=== PATIENT | female | born 1990 | race Caucasian/White ===

== ENCOUNTER 2016-07-02 14:53 | Emergency (ER) | payer OTHER ==
[~2016-07-02] VITALS: Ht 160 cm; Wt 55.0 kg
[~2016-07-02 14:53] MED LIST: CLON.5 PO; OMEP20TA39 PO; ZOFR4TAB3 SL
[2016-07-02 15:14] VITALS: BP 133/74; PULSE 91; RESP 18; O2SAT 96
[2016-07-02] MEDS ORDERED: PREN29TA PO (15:20)
[2016-07-02 15:50] LABS: MEAN CORPUSCULAR HGB CONC 36.1 % (32.0-36.0)
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
[2016-07-02 16:07] LABS: BASOPHIL % 0.2 % (0.0-2.0); EOSINOPHIL # 0.1 TH/MM3 (0-0.4); EOSINOPHIL % 0.5 % (0.0-4.0); HEMATOCRIT 37.4 % (35.0-46.0); LYMPH % 16.6 % (9.0-44.0); LYMPHOCYTE # 1.7 TH/MM3 (1.0-4.8); MEAN CELL VOLUME 86.6 FL (80.0-100.0); MEAN CORPUSCULAR HEMOGLOBIN 31.3 PG (27.0-34.0); MONO % 5.9 % (0.0-8.0); NEUT % 76.8 % (16.0-70.0); PLATELET COUNT 217 TH/MM3 (150-450); RED BLOOD COUNT 4.32 MIL/MM3 (4.00-5.30); RED CELL DISTRIBUTION WIDTH 12.7 % (11.6-17.2); WHITE BLOOD COUNT 10.5 TH/MM3 (4.0-11.0)
[2016-07-02 16:08] LABS: BLOOD, URINE NEG (NEG); COMMENT (UR) CULT NOT INDICATED; CULTURE IF INDICATED CULT NOT INDICATED; GLUCOSE,URINE NEG (NEG); KETONE, URINE NEG (NEG); NITRITE,URINE NEG (NEG); PH, URINE 6.5 (5.0-8.5); SQUAMOUS EPITHELIAL CELL URINE <1 /hpf (0-5); URINE COLOR YELLOW (YELLW/STRAW)
[2016-07-02 16:10] LABS: HEMO FLAGS AUTO DIFF
[2016-07-02 16:17] LABS: POTASSIUM 3.6 MEQ/L (3.5-5.1)
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
[2016-07-02 16:51] LABS: PLATELET ESTIMATE SMEAR NORMAL (NORMAL); PLATELET MORPHOLOGY NORMAL (NORMAL); SCAN/DIFF AUTO DIFF CONFIRMED
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
== END 2016-07-02 18:21 | disposition home or self-care (01) ==
LOC: NEPE 14:53
DX: O26.891 Other specified pregnancy related conditions, first trimester (principal); Z3A.11 11 weeks gestation of pregnancy; R10.2 Pelvic and perineal pain; V43.52XA Car driver injured in collision with other type car in traffic accident, initial encounter; Y93.9 Activity, unspecified; Y92.9 Unspecified place or not applicable
CPT/HCPCS: 70450; 72125; 80048; 81001; 85025; 99284; L0150

== ENCOUNTER 2016-07-25 05:20 | Emergency (ER) | payer MEDICAID, OTHER ==
[~2016-07-25] VITALS: Ht 172.7 cm; Wt 65.0 kg
[~2016-07-25 05:20] MED LIST changes: -CLON.5 PO; -OMEP20TA39 PO; +PREN29TA PO; -ZOFR4TAB3 SL
[2016-07-25 05:22] VITALS: BP 114/70; PULSE 92; RESP 16; TEMP 97.9; O2SAT 99
[2016-07-25] MEDS ORDERED: SODIUM CHLOR 0.9% 1000 ML INJ 1,000 ML IV ONE (05:30)
[2016-07-25] MEDS ORDERED: ONDANSETRON HCL 4 MG/2 ML VIAL IVP ONE (05:30)
[2016-07-25] MEDS ORDERED: SODIUM CHLOR 0.9% 1000 ML INJ 1,000 ML IV SCH (05:30)
[2016-07-25] MEDS ORDERED: SODIUM CHLORIDE 0.9% FLUSH 10 ML FLUSH IV FLUSH PRN (05:30)
[2016-07-25 05:39] VITALS: O2SAT 100
--- NOTE | 2016-07-25 05:39 | PD ---
HPI Chief Complaint: GI Complaint Time Seen by Provider: 05:25 Travel History International Travel<30 days: No Contact w/Intl Traveler<30days: No Traveled to known affect area: No History of Present Illness HPI The patient is a 26-year-old female who presents to the emergency department for nausea and vomiting. The patient is currently 15 weeks , last menstrual cycle April 08, 2016. Patient is Ab1. The patient states she ate dinner last night, pork chops and broccoli, and 2 hours later developed nausea and vomiting. Patient does complain of generalized crampy abdominal pain associated with nausea and vomiting 3. The patient denies any diarrhea. The patient states that her significant other ate the same meal and he has no current symptoms. The patient does have a 4-year-old child at home that stays at home, no daycare, with no similar symptoms. The patient denies any dysuria, frequency, urgency, or vaginal bleeding. The abdominal pain is generalized, crampy, and assisted with the nausea and vomiting. 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 [facility] Past Medical History Asthma: No Autoimmune Disease: No Blood Disorders: No Anxiety: No Depression: No Heart Rhythm Problems: Yes (HEART MURMUR WHEN YOUNGER) Cardiovascular Problems: No Chest Pain: No Cystic Fibrosis: No Diminished Hearing: No Endocrine: No Gastrointestinal Disorders: Yes Genitourinary: No Headaches: No Hypertension: No Musculoskeletal: No Neurologic: No Psychiatric: No Respiratory: Yes Seizures: No Sickle Cell Disease: No Sleep Apnea: No ?: Menopausal: Yes : 3 Para: 1 : 1 Past Surgical History Abdominal Surgery: No Appendectomy: No Cardiac Surgery: No Cholecystectomy: No Ear Surgery: No Endocrine Surgery: No Eye Surgery: No Genitourinary Surgery: No Gynecologic Surgery: No Joint Replacement: No Neurologic Surgery: No Oral Surgery: No Thoracic Surgery: No Other Surgery: Yes (arm) Social History Alcohol Use: No Tobacco Use: No (quit ) Substance Use: Yes (OCCASIONAL) Allergies-Medications (Allergen,Severity, Reaction): Coded Allergies: No Known Allergies (Verified , 07/25/16) Reported Meds & Prescriptions Reported Meds & Active Scripts Active Zofran Odt (Ondansetron Odt) 4 Mg Tab 4 Mg SL Q6HR PRN Phenergan (Promethazine HCl) 25 Mg Tab 25 Mg PO Q6H PRN Reported Plus Iron 29-1 mg ( Vit-Iron Carbonyl) 1 Tab Tab 1 Tab PO DAILY Review of Systems Except as stated in HPI: all other systems reviewed are Neg General / Constitutional: No: Fever Cardiovascular: No: Chest Pain or Discomfort Respiratory: No: Shortness of Breath Gastrointestinal: Positive: Nausea, Vomiting, Abdominal Pain (crampy abdominal pain), No: Diarrhea, Constipation Genitourinary: No: Dysuria, Vaginal Bleeding Physical Exam Narrative GENERAL: Awake, alert, pleasant 26-year-old female who appears her stated age and is in no acute respiratory distress. SKIN: Focused skin assessment warm/dry. HEAD: Atraumatic. Normocephalic. EYES: Pupils equal and round. No scleral icterus. No injection or drainage. ENT: No nasal bleeding or discharge. Slightly dry mucous membranes. NECK: Trachea midline. No JVD. CARDIOVASCULAR: Regular rate and rhythm. No murmur appreciated. RESPIRATORY: No accessory muscle use. Clear to auscultation. Breath sounds equal bilaterally. GASTROINTESTINAL: Abdomen soft, gravid inferior to the umbilicus. No rebound tenderness, guarding, rigidity. MUSCULOSKELETAL: No obvious deformities. No clubbing. No cyanosis. No edema. NEUROLOGICAL: Awake and alert. No obvious cranial nerve deficits. Motor grossly within normal limits. Normal speech. PSYCHIATRIC: Appropriate mood and affect; insight and judgment normal. Data Data Last Documented VS Vital Signs Date Time Temp Pulse Resp B/P Pulse Ox O2 Delivery O2 Flow Rate FiO2 07/25/16 07:53 97.8 78 16 120/77 99 07/25/16 05:39 Room Air Orders Complete Blood Count With Diff (07/25/16 05:30) Comprehensive Metabolic Panel (07/25/16 05:30) Lipase (07/25/16 05:30) Urinalysis - C+S If Indicated (07/25/16 05:30) Iv Access Insert/Monitor (07/25/16 05:30) Ecg Monitoring (07/25/16 05:30) Oximetry (07/25/16 05:30) Ondansetron Inj (Zofran Inj) (07/25/16 05:30) Sodium Chlor 0.9% 1000 Ml Inj (Ns 1000 M (07/25/16 05:30) Sodium Chloride 0.9% Flush (Ns Flush) (07/25/16 05:30) Sodium Chlor 0.9% 1000 Ml Inj (Ns 1000 M (07/25/16 05:30) Metoclopramide Inj (Reglan Inj) (07/25/16 06:30) Labs Laboratory Tests Test 07/25/16 07/25/16 05:30 06:20 White Blood Count 12.8 TH/MM3 Red Blood Count 4.22 MIL/MM3 Hemoglobin 13.1 GM/DL Hematocrit 36.4 % Mean Corpuscular Volume 86.2 FL Mean Corpuscular Hemoglobin 31.0 PG Mean Corpuscular Hemoglobin 36.0 % Concent Red Cell Distribution Width 13.0 % Platelet Count 192 TH/MM3 Mean Platelet Volume 7.9 FL Neutrophils (%) (Auto) 91.0 % Lymphocytes (%) (Auto) 5.2 % Monocytes (%) (Auto) 3.4 % Eosinophils (%) (Auto) 0.3 % Basophils (%) (Auto) 0.1 % Neutrophils # (Auto) 11.6 TH/MM3 Lymphocytes # (Auto) 0.7 TH/MM3 Monocytes # (Auto) 0.4 TH/MM3 Eosinophils # (Auto) 0.0 TH/MM3 Basophils # (Auto) 0.0 TH/MM3 CBC Comment AUTO DIFF Differential Comment AUTO DIFF CONFIRMED Sodium Level 136 MEQ/L Potassium Level 3.5 MEQ/L Chloride Level 102 MEQ/L Carbon Dioxide Level 23.0 MEQ/L Anion Gap 11 MEQ/L Blood Urea Nitrogen 9 MG/DL Creatinine 0.45 MG/DL Estimat Glomerular Filtration 166 ML/MIN Rate Random Glucose 95 MG/DL Calcium Level 8.7 MG/DL Total Bilirubin 0.7 MG/DL Aspartate Amino Transf 12 U/L (AST/SGOT) Alanine Aminotransferase 19 U/L (ALT/SGPT) Alkaline Phosphatase 53 U/L Total Protein 6.4 GM/DL Albumin 3.3 GM/DL Lipase 92 U/L Urine Color STRAW Urine Turbidity CLEAR Urine pH 7.0 Urine Specific [place] 1.003 Urine Protein NEG mg/dL Urine Glucose (UA) NEG mg/dL Urine Ketones TRACE mg/dL Urine Occult Blood NEG Urine Nitrite NEG Urine Bilirubin NEG Urine Urobilinogen LESS THAN 2.0 MG/DL Urine Leukocyte Esterase NEG Urine Squamous Epithelial 2 /hpf Cells Urine Bacteria RARE /hpf Microscopic Urinalysis Comment CULT NOT INDICATED MDM Medical Decision Making Medical Screen Exam Complete: Yes Emergency Medical Condition: Yes Medical Record Reviewed: Yes Interpretation(s) Laboratory Tests Test 07/25/16 05:30 White Blood Count 12.8 TH/MM3 Red Blood Count 4.22 MIL/MM3 Hemoglobin 13.1 GM/DL Hematocrit 36.4 % Mean Corpuscular Volume 86.2 FL Mean Corpuscular Hemoglobin 31.0 PG Mean Corpuscular Hemoglobin 36.0 % Concent Red Cell Distribution Width 13.0 % Platelet Count 192 TH/MM3 Mean Platelet Volume 7.9 FL Neutrophils (%) (Auto) 91.0 % Lymphocytes (%) (Auto) 5.2 % Monocytes (%) (Auto) 3.4 % Eosinophils (%) (Auto) 0.3 % Basophils (%) (Auto) 0.1 % Neutrophils # (Auto) 11.6 TH/MM3 Lymphocytes # (Auto) 0.7 TH/MM3 Monocytes # (Auto) 0.4 TH/MM3 Eosinophils # (Auto) 0.0 TH/MM3 Basophils # (Auto) 0.0 TH/MM3 CBC Comment AUTO DIFF Sodium Level 136 MEQ/L Potassium Level 3.5 MEQ/L Chloride Level 102 MEQ/L Carbon Dioxide Level 23.0 MEQ/L Anion Gap 11 MEQ/L Blood Urea Nitrogen 9 MG/DL Creatinine 0.45 MG/DL Estimat Glomerular Filtration 166 ML/MIN Rate Random Glucose 95 MG/DL Calcium Level 8.7 MG/DL Total Bilirubin 0.7 MG/DL Aspartate Amino Transf 12 U/L (AST/SGOT) Alanine Aminotransferase 19 U/L (ALT/SGPT) Alkaline Phosphatase 53 U/L Total Protein 6.4 GM/DL Albumin 3.3 GM/DL Lipase 92 U/L Differential Diagnosis Differential diagnosis includes hyperemesis gravidarum, dehydration, electrolyte abnormality, food poisoning, gastritis, gastritis, viral syndrome, UTI. Narrative Course IV was established, labs are drawn and sent, and the patient was placed on cardiac telemetry monitoring and continuous pulse oximetry monitoring. The patient was administered Zofran and 2 L of IV fluids. UA was ordered. The patient received Zofran and 1 L of IV fluids, still felt somewhat nauseated. Therefore, patient was administered Reglan 10 mg intravenously and a second liter of IV fluids. White count is mildly elevated, LFTs and lipase are unremarkable. The patient was signed out to the oncoming physician at 7 AM with reevaluation of her nausea and vomiting pending. Diagnosis Primary Impression: Nausea/vomiting in Additional Impression: Gastritis Qualified Code: K29.00 - Acute gastritis, presence of bleeding unspecified, unspecified gastritis type Patient Instructions: General Instructions Additional Instructions: Zofran and Phenergan as directed. Plenty of fluids to stay hydrated. Clear liquid diet and advance as tolerated. Return if symptoms worsen or progress. Med/Other Pt SpecificInfo: Prescription(s) given Scripts Ondansetron Odt (Zofran Odt)4 Mg Tab4 Mg SL Q6HR PRN (Nausea/Vomiting) #10 TAB Ref 0 Prov:Angelo Marshall MD 07/25/16 Promethazine (Phenergan)25 Mg Tab25 Mg PO Q6H PRN (Nausea/Vomiting) #10 TAB Ref 0 Prov:Angelo Marshall MD 07/25/16 Disposition: 01 DISCHARGE HOME Condition: Stable Angelo Marshall MD Jul 25, 2016 05:39
[2016-07-25 05:52] LABS: AUTOMATED NEUTROPHIL # 11.6 TH/MM3 (1.8-7.7); BASOPHIL % 0.1 % (0.0-2.0); EOSINOPHIL % 0.3 % (0.0-4.0); HEMATOCRIT 36.4 % (35.0-46.0); LYMPH % 5.2 % (9.0-44.0); LYMPHOCYTE # 0.7 TH/MM3 (1.0-4.8); MEAN CELL VOLUME 86.2 FL (80.0-100.0); MONO % 3.4 % (0.0-8.0); PLATELET COUNT 192 TH/MM3 (150-450); RED BLOOD COUNT 4.22 MIL/MM3 (4.00-5.30); WHITE BLOOD COUNT 12.8 TH/MM3 (4.0-11.0)
[2016-07-25 05:59] LABS: HEMO FLAGS AUTO DIFF
[2016-07-25 06:07] LABS: ANION GAP 11 MEQ/L (5-15); AST (GOT) 12 U/L (15-37); BLOOD UREA NITROGEN 9 MG/DL (7-18); CHLORIDE 102 MEQ/L (98-107); GLOMERULAR FILTRATION RATE 166 ML/MIN (>89); POTASSIUM 3.5 MEQ/L (3.5-5.1); SODIUM (NA) 136 MEQ/L (136-145)
[2016-07-25 06:10] LABS: ALKALINE PHOSPHATASE 53 U/L (45-117); ALT (GPT) 19 U/L (10-53); TOTAL BILIRUBIN ADULT 0.7 MG/DL (0.2-1.0)
[2016-07-25] MEDS ORDERED: ZOFR4TAB3 SL (06:29)
[2016-07-25] MEDS ORDERED: PROM25TA5 PO (06:29)
[2016-07-25] MEDS ORDERED: METOCLOPRAMIDE HCL 10 MG/2 ML VIAL IV PUSH ONE (06:30)
[2016-07-25 06:40] LABS: SCAN/DIFF AUTO DIFF CONFIRMED
[2016-07-25 07:04] LABS: BACTERIA, URINE RARE /hpf; BLOOD, URINE NEG (NEG); COMMENT (UR) CULT NOT INDICATED; CULTURE IF INDICATED CULT NOT INDICATED; GLUCOSE,URINE NEG (NEG); KETONE, URINE TRACE mg/dL (NEG); NITRITE,URINE NEG (NEG); SQUAMOUS EPITHELIAL CELL URINE 2 /hpf (0-5)
[2016-07-25 07:08] LABS: URINE COLOR STRAW (YELLW/STRAW)
[2016-07-25 07:53] VITALS: BP 120/77; TEMP 97.8
--- NOTE | 2016-07-25 07:57 | PD ---
Physical Exam Narrative Patient signed out to me by Dr. Marshall to follow up UA and assess for symptom resolution. Please see his documentation for complete details. Briefly , patient is a 26-year-old female who is 15 weeks . She has been complaining of nausea and vomiting. Data Data Last Documented VS Vital Signs Date Time Temp Pulse Resp B/P Pulse Ox O2 Delivery O2 Flow Rate FiO2 07/25/16 05:39 100 Room Air 07/25/16 05:22 97.9 92 16 114/70 Orders Complete Blood Count With Diff (07/25/16 05:30) Comprehensive Metabolic Panel (07/25/16 05:30) Lipase (07/25/16 05:30) Urinalysis - C+S If Indicated (07/25/16 05:30) Iv Access Insert/Monitor (07/25/16 05:30) Ecg Monitoring (07/25/16 05:30) Oximetry (07/25/16 05:30) Ondansetron Inj (Zofran Inj) (07/25/16 05:30) Sodium Chlor 0.9% 1000 Ml Inj (Ns 1000 M (07/25/16 05:30) Sodium Chloride 0.9% Flush (Ns Flush) (07/25/16 05:30) Sodium Chlor 0.9% 1000 Ml Inj (Ns 1000 M (07/25/16 05:30) Metoclopramide Inj (Reglan Inj) (07/25/16 06:30) Labs Laboratory Tests Test 07/25/16 07/25/16 05:30 06:20 White Blood Count 12.8 TH/MM3 Red Blood Count 4.22 MIL/MM3 Hemoglobin 13.1 GM/DL Hematocrit 36.4 % Mean Corpuscular Volume 86.2 FL Mean Corpuscular Hemoglobin 31.0 PG Mean Corpuscular Hemoglobin 36.0 % Concent Red Cell Distribution Width 13.0 % Platelet Count 192 TH/MM3 Mean Platelet Volume 7.9 FL Neutrophils (%) (Auto) 91.0 % Lymphocytes (%) (Auto) 5.2 % Monocytes (%) (Auto) 3.4 % Eosinophils (%) (Auto) 0.3 % Basophils (%) (Auto) 0.1 % Neutrophils # (Auto) 11.6 TH/MM3 Lymphocytes # (Auto) 0.7 TH/MM3 Monocytes # (Auto) 0.4 TH/MM3 Eosinophils # (Auto) 0.0 TH/MM3 Basophils # (Auto) 0.0 TH/MM3 CBC Comment AUTO DIFF Differential Comment AUTO DIFF CONFIRMED Sodium Level 136 MEQ/L Potassium Level 3.5 MEQ/L Chloride Level 102 MEQ/L Carbon Dioxide Level 23.0 MEQ/L Anion Gap 11 MEQ/L Blood Urea Nitrogen 9 MG/DL Creatinine 0.45 MG/DL Estimat Glomerular Filtration 166 ML/MIN Rate Random Glucose 95 MG/DL Calcium Level 8.7 MG/DL Total Bilirubin 0.7 MG/DL Aspartate Amino Transf 12 U/L (AST/SGOT) Alanine Aminotransferase 19 U/L (ALT/SGPT) Alkaline Phosphatase 53 U/L Total Protein 6.4 GM/DL Albumin 3.3 GM/DL Lipase 92 U/L Urine Color STRAW Urine Turbidity CLEAR Urine pH 7.0 Urine Specific [place] 1.003 Urine Protein NEG mg/dL Urine Glucose (UA) NEG mg/dL Urine Ketones TRACE mg/dL Urine Occult Blood NEG Urine Nitrite NEG Urine Bilirubin NEG Urine Urobilinogen LESS THAN 2.0 MG/DL Urine Leukocyte Esterase NEG Urine Squamous Epithelial 2 /hpf Cells Urine Bacteria RARE /hpf Microscopic Urinalysis Comment CULT NOT INDICATED MDM Supervised Visit with NICK: No Narrative Course After 2 L of fluid, Zofran, Reglan, patient is feeling better. On reassessment , her abdomen is nontender to palpation. She is able to drink water without vomiting. She will be discharged with prescriptions for antinausea medicine. UA is negative for UTI. 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 Advised to return to the ED as needed for any worsening symptoms. Advised to drink plenty of fluids. Advised to eat a bland diet. Diagnosis Primary Impression: Nausea/vomiting in Additional Impression: Gastritis Qualified Code: K29.00 - Acute gastritis, presence of bleeding unspecified, unspecified gastritis type Patient Instructions: General Instructions, Nausea and Vomiting in ( ED), Gastritis (ED) Departure Forms: Tests/Procedures Additional Instruction: Zofran and Phenergan as directed. Plenty of fluids to stay hydrated. Clear liquid diet and advance as tolerated. Return if symptoms worsen or progress. Scripts Ondansetron Odt (Zofran Odt)4 Mg Tab4 Mg SL Q6HR PRN (Nausea/Vomiting) #10 TAB Ref 0 Prov:Angelo Marshall MD 07/25/16 Promethazine (Phenergan)25 Mg Tab25 Mg PO Q6H PRN (Nausea/Vomiting) #10 TAB Ref 0 Prov:Angelo Marshall MD 07/25/16 Disposition: 01 DISCHARGE HOME Condition: Stable Nayana Torres MD Jul 25, 2016 07:57
== END 2016-07-25 07:53 | disposition home or self-care (01) ==
LOC: NEPC 05:20
DX: O99.611 Diseases of the digestive system complicating pregnancy, first trimester (principal); Z3A.15 15 weeks gestation of pregnancy
CPT/HCPCS: 80053; 81001; 83690; 85025; 96361; 96374; 96375; 99284; J2405; J2765; J7030